=== PATIENT | male | born 1960 | race Caucasian/White ===

== ENCOUNTER → 2017-12-18 08:03 | Outpatient (REF) | payer BC, SELFPAY ==
[2017-12-18 20:53] LABS: ALT 34 U/L (12-78); AST 22 U/L (15-37); Albumin 3.9 g/dL (3.4-5.0); Alkaline Phosphatase 72 U/L (46-116); Anion Gap 10.9 mmol/L (3-11); BUN 9 mg/dL (7-18); Bilirubin, Total 0.5 mg/dL (0.2-1.0); CO2 28.1 mmol/L (21.0-32.0); CREATININE 1.05 mg/dL (0.70-1.30); Chloride 105 mmol/L (98-107); Cholesterol 145 mg/dL (50-200); Glucose 176 mg/dL (70-100); HDL Cholesterol 32 mg/dL (40-60); LDL CHOLESTEROL 98 mg/dL (<100); Potassium 3.7 mmol/L (3.5-5.1); Sodium 144 mmol/L (136-145); Total Protein 7.5 g/dL (6.4-8.2); Triglyceride 101 mg/dL (30-150)
== END ==
LOC: NCHCN 08:03
PROVIDERS: PCP Family Medicine; Visit Provider Family Medicine
DX: I10 Essential (primary) hypertension (principal); E78.70 Disorder of bile acid and cholesterol metabolism, unspecified; E11.40 Type 2 diabetes mellitus with diabetic neuropathy, unspecified; E66.01 Morbid (severe) obesity due to excess calories
CPT/HCPCS: 80053; 80061; 83721

== ENCOUNTER 2019-01-04 09:22 | Outpatient (REF) | payer BC, SELFPAY ==
[2019-01-04 22:27] LABS: ALT 33 U/L (16-63); AST 21 U/L (15-37); Alkaline Phosphatase 76 U/L (46-116); Anion Gap 12.7 mmol/L (3-11); BUN 11 mg/dL (7-18); Bilirubin, Total 0.5 mg/dL (0.2-1.0); CO2 26.3 mmol/L (21.0-32.0); CREATININE 1.02 mg/dL (0.70-1.30); Calcium 9.3 mg/dL (8.5-10.1); Calculated LDL 103 mg/dL; Chloride 104 mmol/L (98-107); Cholesterol 150 mg/dL (50-200); Glucose 132 mg/dL (70-100); HDL Cholesterol 32 mg/dL (40-60); Potassium 3.8 mmol/L (3.5-5.1); Sodium 143 mmol/L (136-145); Triglyceride 77 mg/dL (30-150)
[2019-01-04 22:36] LABS: COMMENT (LAB VIEW ONLY) 17.05 mg/dL
[2019-01-04 22:42] LABS: Total Protein 7.5 g/dL (6.4-8.2)
[2019-01-04 22:44] LABS: Hemoglobin A1C 7.2 % (4.5-6.2)
[2019-01-05 09:41] LABS: Vitamin D 25 Total 52.8 ng/ml (30-100)
== END 2019-01-04 09:42 ==
LOC: NCHCN 09:22
PROVIDERS: PCP Family Medicine; Visit Provider Family Medicine
DX: E11.40 Type 2 diabetes mellitus with diabetic neuropathy, unspecified (principal); I10 Essential (primary) hypertension; E78.70 Disorder of bile acid and cholesterol metabolism, unspecified; E55.9 Vitamin D deficiency, unspecified
CPT/HCPCS: 80053; 80061; 82306; 83721; 82043; 82570; 83036

== ENCOUNTER 2020-01-03 16:59 | Outpatient (REF) | payer BC, SELFPAY ==
[2020-01-03 21:25] LABS: ALT 52 U/L (16-63); AST 30 U/L (15-37); Albumin 4.3 g/dL (3.4-5.0); Alkaline Phosphatase 71 U/L (46-116); Anion Gap 5.3 mmol/L (3-11); BUN 12 mg/dL (7-18); Bilirubin, Total 0.5 mg/dL (0.2-1.0); CO2 30.7 mmol/L (21.0-32.0); CREATININE 1.02 mg/dL (0.70-1.30); Calcium 9.8 mg/dL (8.5-10.1); Calculated LDL 115 mg/dL (<100); Chloride 105 mmol/L (98-107); Cholesterol 173 mg/dL (<200); Glucose 145 mg/dL (74-106); HDL Cholesterol 34 mg/dL (40-60); Potassium 3.5 mmol/L (3.5-5.1); Sodium 141 mmol/L (136-145); Triglyceride 122 mg/dL (<150)
== END 2020-01-03 17:19 ==
LOC: NCHCN 16:59
PROVIDERS: PCP Family Medicine; Visit Provider Family Medicine
DX: E11.9 Type 2 diabetes mellitus without complications (principal); I10 Essential (primary) hypertension; E66.9 Obesity, unspecified
CPT/HCPCS: 80053; 80061

== ENCOUNTER 2020-03-27 17:06 | Outpatient (REF) | payer BC, SELFPAY ==
[2020-03-27 21:08] LABS: COMMENT (LAB VIEW ONLY) 33.41 mg/dL; Microalb ug/mg Crea 8.4 ug/mg Cr
== END 2020-03-27 17:26 ==
LOC: NCHCN 17:06
PROVIDERS: PCP Family Medicine; Visit Provider Family Medicine
DX: E11.65 Type 2 diabetes mellitus with hyperglycemia (principal); I10 Essential (primary) hypertension; E66.01 Morbid (severe) obesity due to excess calories
CPT/HCPCS: 82043; 82570

== ENCOUNTER 2021-01-07 08:06 | Outpatient (REF) | payer BC, SELFPAY ==
[2021-01-07 15:50] LABS: Hemoglobin A1C 7.2 % (<5.7)
[2021-01-07 15:58] LABS: ALT 49 U/L (16-63); AST 26 U/L (15-37); Albumin 4.3 g/dL (3.4-5.0); Alkaline Phosphatase 88 U/L (46-116); Anion Gap 10.6 mmol/L (3-11); BUN 12 mg/dL (7-18); Bilirubin, Total 0.5 mg/dL (0.2-1.0); CO2 29.4 mmol/L (21.0-32.0); CREATININE 1.1 mg/dL (0.70-1.30); Calcium 9.6 mg/dL (8.5-10.1); Calculated LDL 101 mg/dL (<100); Chloride 100 mmol/L (98-107); Cholesterol 155 mg/dL (<200); Glucose 129 mg/dL (74-106); HDL Cholesterol 34 mg/dL (40-60); Potassium 3.5 mmol/L (3.5-5.1); Sodium 140 mmol/L (136-145); Total Protein 7.7 g/dL (6.4-8.2); Triglyceride 104 mg/dL (<150)
[2021-01-07 16:50] LABS: COMMENT (LAB VIEW ONLY) 87.62 mg/dL; Microalb ug/mg Crea 5.7 ug/mg Cr
== END 2021-01-07 08:07 | disposition home or self-care (01) ==
LOC: NCHCN 08:06
PROVIDERS: PCP Family Medicine; Visit Provider Family Medicine
DX: E11.65 Type 2 diabetes mellitus with hyperglycemia (principal); I10 Essential (primary) hypertension; Z00.00 Encounter for general adult medical examination without abnormal findings
CPT/HCPCS: 80053; 80061; 82043; 82570; 83036

== ENCOUNTER 2022-01-02 16:01 | Outpatient (REF) | payer OTHER, SELFPAY ==
[2022-01-02 14:55] LABS: ALT 40 U/L (16-63); AST 27 U/L (15-37); Albumin 4.1 g/dL (3.4-5.0); Alkaline Phosphatase 68 U/L (46-116); Anion Gap 11.3 mmol/L (3-11); BUN 11 mg/dL (7-18); Bilirubin, Total 0.5 mg/dL (0.2-1.0); CO2 30.7 mmol/L (21.0-32.0); CREATININE 0.8 mg/dL (0.70-1.30); Calcium 9.4 mg/dL (8.5-10.1); Calculated LDL 95 mg/dL (<100); Chloride 104 mmol/L (98-107); Cholesterol 148 mg/dL (<200); Glucose 119 mg/dL (74-106); HDL Cholesterol 36 mg/dL (40-60); Potassium 3.3 mmol/L (3.5-5.1); Sodium 146 mmol/L (136-145); Total Protein 7.6 g/dL (6.4-8.2); Triglyceride 89 mg/dL (<150)
[2022-01-02 14:56] LABS: Hemoglobin A1C 6.8 % (<5.7)
== END 2022-01-02 16:02 | disposition home or self-care (01) ==
LOC: NCHCN 16:01
PROVIDERS: PCP Family Medicine; Visit Provider Family Medicine
DX: E11.9 Type 2 diabetes mellitus without complications (principal); I10 Essential (primary) hypertension; E66.01 Morbid (severe) obesity due to excess calories; E78.70 Disorder of bile acid and cholesterol metabolism, unspecified
CPT/HCPCS: 80053; 80061; 83036

== ENCOUNTER 2022-01-21 22:06 | Outpatient (REF) | payer OTHER, SELFPAY ==
[2022-01-21 21:14] LABS: BUN 12 mg/dL (7-18); CREATININE 1.1 mg/dL (0.70-1.30); Calcium 9.8 mg/dL (8.5-10.1); Chloride 101 mmol/L (98-107); Estimated GFR 75.43 (mL/min/1.73m2); Glucose 165 mg/dL (74-106); Potassium 3.1 mmol/L (3.5-5.1); Sodium 140 mmol/L (136-145)
[2022-01-22 17:56] LABS: Albumin, Ur < 0.6 mg/dL (See Note); Creatinine, Ur 46.9 mg/dL (See Note)
== END 2022-01-21 22:07 | disposition home or self-care (01) ==
LOC: NCHCN 22:06
PROVIDERS: PCP Family Medicine; Visit Provider Family Medicine
DX: E11.9 Type 2 diabetes mellitus without complications (principal); I10 Essential (primary) hypertension
CPT/HCPCS: 80048; 82043; 82570

== ENCOUNTER 2022-02-12 16:37 | Outpatient (REF) | payer OTHER, SELFPAY ==
[2022-02-12 14:42] LABS: Anion Gap 8.1 mmol/L (3-11); BUN 12 mg/dL (7-18); CO2 30.9 mmol/L (21.0-32.0); Calcium 9.7 mg/dL (8.5-10.1); Chloride 103 mmol/L (98-107); Estimated GFR 84.57 (mL/min/1.73m2); Glucose 144 mg/dL (74-106); Potassium 3.6 mmol/L (3.5-5.1); Sodium 142 mmol/L (136-145)
== END 2022-02-12 16:38 | disposition home or self-care (01) ==
LOC: NCHCN 16:37
PROVIDERS: PCP Family Medicine; Visit Provider Family Medicine
DX: E87.6 Hypokalemia (principal)
CPT/HCPCS: 80048

== ENCOUNTER 2023-01-15 14:17 | Outpatient (REF) | payer OTHER, SELFPAY ==
[2023-01-15 15:56] LABS: COMMENT (LAB VIEW ONLY) 27.86 mg/dL
[2023-01-15 15:58] LABS: ALT 39 U/L (16-63); AST 32 U/L (15-37); Alkaline Phosphatase 70 U/L (46-116); Anion Gap 9.2 mmol/L (3-11); BUN 10 mg/dL (7-18); Bilirubin, Total 0.6 mg/dL (0.2-1.0); CO2 27.8 mmol/L (21.0-32.0); Calcium 9.9 mg/dL (8.5-10.1); Calculated LDL 94 mg/dL (<100); Chloride 106 mmol/L (98-107); Cholesterol 144 mg/dL (<200); Estimated GFR 84.05 (mL/min/1.73m2); Glucose 122 mg/dL (74-106); HDL Cholesterol 37 mg/dL (40-60); Potassium 3.4 mmol/L (3.5-5.1); Sodium 143 mmol/L (136-145); Total Protein 7.8 g/dL (6.4-8.2); Triglyceride 68 mg/dL (<150)
== END 2023-01-15 14:18 | disposition home or self-care (01) ==
LOC: NCHCN 14:17
PROVIDERS: PCP Family Medicine; Visit Provider Family Medicine
DX: Z00.00 Encounter for general adult medical examination without abnormal findings (principal); I10 Essential (primary) hypertension; E78.00 Pure hypercholesterolemia, unspecified; E11.9 Type 2 diabetes mellitus without complications
CPT/HCPCS: 80053; 80061; 82043; 82570

== ENCOUNTER 2024-02-09 13:19 | Outpatient (REF) | payer MEDICARE, SELFPAY ==
[2024-02-09 15:30] LABS: Hemoglobin A1C 6.2 % (<5.7)
[2024-02-09 15:49] LABS: ALT 32 U/L (16-63); AST 26 U/L (15-37); Alkaline Phosphatase 74 U/L (46-116); Anion Gap 8.2 mmol/L (3-11); BUN 12 mg/dL (7-18); Bilirubin, Total 0.49 mg/dL (0.2-1.0); CO2 29.8 mmol/L (21.0-32.0); Calculated LDL 101 mg/dL (<100); Chloride 104 mmol/L (98-107); Cholesterol 163 mg/dL (<200); Estimated GFR 83.52 (mL/min/1.73m2); Glucose 117 mg/dL (74-106); HDL Cholesterol 42 mg/dL (40-60); Potassium 3.5 mmol/L (3.5-5.1); Sodium 142 mmol/L (136-145); Triglyceride 101 mg/dL (<150)
== END 2024-02-09 13:20 | disposition home or self-care (01) ==
LOC: NCHCN 13:19
PROVIDERS: PCP Family Medicine; Visit Provider Family Medicine
DX: I10 Essential (primary) hypertension (principal); E11.9 Type 2 diabetes mellitus without complications
CPT/HCPCS: 80053; 80061; 83036

== ENCOUNTER 2024-02-18 17:28 | Outpatient (REF) | payer MEDICARE, SELFPAY ==
[2024-02-18 21:27] LABS: COMMENT (LAB VIEW ONLY) 47.65 mg/dL; Microalb ug/mg Crea 3.6 ug/mg Cr
== END 2024-02-18 17:29 | disposition home or self-care (01) ==
LOC: NCHCN 17:28
PROVIDERS: PCP Family Medicine; Visit Provider Family Medicine
DX: E11.9 Type 2 diabetes mellitus without complications (principal)
CPT/HCPCS: 82043; 82570

== ENCOUNTER 2025-05-10 15:58 | Outpatient (REF) | payer MEDICARE, OTHER, SELFPAY ==
[2025-05-10 16:55] LABS: Hemoglobin A1C 6.5 % (<5.7)
[2025-05-10 16:58] LABS: ALT 31 U/L (10-49); AST 30 U/L (<34); Albumin 4.9 g/dL (3.2-5.0); Alkaline Phosphatase 93 U/L (46-116); Anion Gap 10.5 mmol/L (3-11); BUN 10 mg/dL (9-23); Bilirubin, Total 0.7 mg/dL (0.2-1.2); CO2 30.5 mmol/L (20.0-31.0); Calcium 9.9 mg/dL (8.3-10.6); Chloride 104 mmol/L (98-107); Cholesterol 158 mg/dL (<200); Glucose 93 mg/dL (74-106); HDL Cholesterol 43 mg/dL (>or=40); Potassium 3.4 mmol/L (3.5-5.1); Sodium 145 mmol/L (136-145); Total Protein 8.2 g/dL (5.7-8.2)
== END 2025-05-10 15:59 | disposition home or self-care (01) ==
LOC: NCHCN 15:58
PROVIDERS: PCP Family Medicine; Visit Provider Family Medicine
DX: E78.9 Disorder of lipoprotein metabolism, unspecified (principal); E11.9 Type 2 diabetes mellitus without complications
CPT/HCPCS: 80053; 80061; 83036